=== PATIENT | female | born 1950 | race Hispanic/Latino ===

== ENCOUNTER 2024-02-28 13:38 | Emergency (ER) | payer MEDICARE ==
[~2024-02-28] VITALS: Ht 160 cm; Wt 77.1 kg
[2024-02-28 13:56] VITALS: TEMP 98.1
[2024-02-28] MEDS: KETOROLAC TROMETHAMINE 60 MG/2 ML VIAL IM ONE (14:18)
[2024-02-28 15:58] VITALS: PULSE 60; RESP 18; O2SAT 98
== END 2024-02-28 17:53 | disposition home or self-care (01) ==
LOC: ER 13:44
DX: Z04.1 Encounter for examination and observation following transport accident (principal); V49.88XA Car occupant (driver) (passenger) injured in other specified transport accidents, initial encounter; Y92.488 Other paved roadways as the place of occurrence of the external cause; I10 Essential (primary) hypertension; E11.9 Type 2 diabetes mellitus without complications; E78.5 Hyperlipidemia, unspecified
CPT/HCPCS: 70450; 72125; 72131; 72192; 99283; J1885

== ENCOUNTER → 2024-06-28 | Day surgery (SDC) | payer MEDICARE ==
[2024-06-21 15:01] LABS: ANION GAP 16.4 mmol/L (8-16); CALCIUM 10.2 mg/dL (8.4-10.2); CREATININE, SERUM 0.79 mg/dL (0.57-1.11); POTASSIUM 4.4 mmol/L (3.5-5.1)
[2024-06-21 15:06] LABS: BASOPHILS # (AUTO) 0.1 (0.0-0.1); BASOPHILS % 0.7 % (0.0-1.0); EOSINOPHILS # (AUTO) 0.2 (0.0-0.4); HEMATOCRIT 40.5 % (34.2-44.1); HEMOGLOBIN 13.9 g/dL (12.0-16.0); LYMPHOCYTES # (AUTO) 2.3 (1.0-3.2); LYMPHOCYTES % 29.9 % (18.0-39.1); MEAN CORPUSCULAR HEMOGLOBIN 32.2 pg (28-32); MEAN CORPUSCULAR HGB CONC 34.3 g/dL (31-35); MEAN CORPUSCULAR VOLUME 93.8 fL (81-99); MONOCYTES # (AUTO) 0.7 (0.2-0.8); MONOCYTES % 8.9 % (4.4-11.3); NEUTROPHILS # (AUTO) 4.5 (2.1-6.9); PLATELET COUNT 197 x10e3/uL (140-360); RED BLOOD COUNT 4.32 x10e6/uL (3.6-5.1); RED CELL DISTRIBUTION WIDTH 11.9 % (11.7-14.4); WHITE BLOOD COUNT 7.68 x10e3/uL (4.8-10.8)
[~2024-06-28] MED LIST: ACETAMINOPHEN-1 EAC4 PO; FAMOTIDINE 20 MG/2 ML VIAL IV ONE; FENOFIBRATE134 MG; FENTANYL CITRATE/PF 100MCG/2 ML INJ ONE; LIDOCAINE HCL 2% LOCAL INJ 5 ML SDV VIAL INJ ONE; OMEPRAZOLE40 MG PO; ONDANSETRON HCL INJ 2MG/ML 2ML 2 MG/ML VIAL ONE; OZEMPIC1 MG/0.71; PROPOFOL IV EMULSION 10 MG/ML 20 ML VIAL ONE; SEVOFLURANE INHAL SOLN 250 ML PEN BTL ONE; TRICOR145 MG PO; VITAMIN B-121000 MCG PO; ZESTRIL40 MG PO; ZETIA10 MG PO
[2024-06-28 07:20] VITALS: TEMP 98.5
[2024-06-28 08:20] VITALS: BP 121/60; PULSE 63; RESP 18; O2SAT 95
[2024-06-28] MEDS: LACTATED RINGER'S 1,000 ML ONE (08:37)
== END | disposition home or self-care (01) ==
LOC: OR 05:54
PROVIDERS: ATTEND Plastic Surgery
DX: G56.02 Carpal tunnel syndrome, left upper limb (principal); M65.842 Other synovitis and tenosynovitis, left hand; G47.33 Obstructive sleep apnea (adult) (pediatric); I10 Essential (primary) hypertension; J45.909 Unspecified asthma, uncomplicated; E78.5 Hyperlipidemia, unspecified; K28.9 Gastrojejunal ulcer, unspecified as acute or chronic, without hemorrhage or perforation; Z01.810 Encounter for preprocedural cardiovascular examination; Z01.812 Encounter for preprocedural laboratory examination; Z01.818 Encounter for other preprocedural examination
CPT/HCPCS: 25115; 36415; 71046; 80048; 85025; 93005; J0690; J2003; J2405; J2704; J3010; J7121